=== PATIENT | female | born 1960 | race Caucasian/White ===

== ENCOUNTER → 2016-11-10 | Outpatient (CLI) | payer MEDICARE, OTHER ==
[~2016-11-10] MED LIST: AMOXICILLIN PO; CALCIUM 500 + D1 TAB PO; DICLOFENAC PO; FLEXERIL PO; FLOXIN20 EA OP; HCTZ PO; HYDROCODON-ACE1 EACH PO; LORTAB ELIXIR15 ML DOB; OTC ACID REFLUX MED; PHENERGAN PO; ULTRAM PO; ZANTAC PO
--- NOTE | ~2016-11-10 | MY29 ---
[facility] A Service of [facility] RADIOLOGY TEXT RESULTS PATIENT: NICOLE MARES LOCATION: [facility] : 64 UNIT #: [id number] AGE: [address]: FRANCOISE OWENS APRN SEX: F ORDER DR: [id number] [facility] [address] [place], [place] [address] [id number] O MR#: [id number] Acc #: [id number] NAME: NICOLE MARES : 1960 SEX: F STUDY DATE/TIME: 11/10/2016 9:20 UNIT: [facility] ROOM: STUDY DESCRIPTION: [facility] SCREENING W/ CAD BILAT Attending Physician: Francoise Owens Aprn Referring Physician: Katerina Bhatt Aprn Primary Care Physician: Francoise Owens Aprn MEDICAL IMAGING REPORT This report is preliminary unless electronic signature is present EXAM Bilateral digital screening mammogram with CAD 11/10/2016 HISTORY No personal or family history breast cancer. No current complaints. COMPARISON Bilateral screening mammograms 11/23/2012 and 09/23/2011. FINDINGS CC and MLO views were obtained of each breast utilizing digital technique and reviewed a FDA-approved CAD device. The breast parenchyma is predominantly fat replaced. No new or suspicious nodules identified. Benign intramammary lymph node in the upper outer left breast, unchanged. Benign round calcifications bilaterally, without suspicious clustered microcalcifications. IMPRESSION 1. BIRADS 2. Benign findings. Routine bilateral screening mammogram is recommended in 1 year. BIRADS: 2 Benign Finding. Patients over the age of 40 are entered into a reminder system with target due date for the next mammogram. A result letter will also be sent to the patient. Dictated by... Nadira Hensley M.D. THIS IS AN ELECTRONICALLY VERIFIED REPORT Nadira Hensley M.D. at 11/13/2016 8:34 AM [facility] A Service of [facility] RADIOLOGY TEXT RESULTS PATIENT: [facility]ICO[facility] MAR[id number] : 64 UNIT #: [id number] AGE: [address]: FRANCOISE OWENS APRN SEX: F ORDER DR: LINDSEY/najma TD: 11/10/2016 20:58 JOB #: [id number] MEDICAL IMAGING REPORT Page 1 of 1 COPY
== END | disposition home or self-care (01) ==
LOC: CWCC 09:11
DX: Z12.31 Encounter for screening mammogram for malignant neoplasm of breast (principal)
CPT/HCPCS: G0202